=== PATIENT | male | born 1960 | race Caucasian/White ===

== ENCOUNTER 2022-07-01 01:55 | Emergency (ER) | payer SELFPAY ==
[~2022-07-01] VITALS: Ht 172.7 cm; Wt 99.8 kg
[2022-07-01 02:10] VITALS: BP 168/94
== END 2022-07-01 03:21 | disposition left against medical advice (07) ==
LOC: ER 01:55
DX: M54.89 Other dorsalgia (principal); Z53.21 Procedure and treatment not carried out due to patient leaving prior to being seen by health care provider
CPT/HCPCS: 93005

== ENCOUNTER 2024-03-03 17:09 | Emergency (ER) | payer SELFPAY ==
[~2024-03-03] VITALS: Ht 172.7 cm; Wt 109.5 kg
[2024-03-03 17:20] VITALS: BP 161/96
--- NOTE | 2024-03-03 17:47 | ECG ---
[facility] Test Date: 2024-03-03 Test Time: 17:42:57 Pat Name: TIMMY VERGARA Department: ER Room: Gender: M [employer]: GP : 1960 Requested By: EMERGENCY EMERGENCY Order Number: [id number] Reading MD: Hector Pham Measurements Intervals [place] Rate: 75 P: 42 [place]: 197 QRS: 45 QRSD: 95 T: 48 QT: 376 QTc: 420 Interpretive Statements Sinus rhythm Electronically Signed On 03-04-2024 8:54:05 PST by Hector Pham Please click the below link to view image of tracing.
--- NOTE | 2024-03-03 19:04 | DVH ---
CHEST RADIOGRAPH Indication: sob Technique: Single frontal view of the chest was obtained Comparison: None FINDINGS: Lines and Tubes: None Lungs: No focal consolidation. Pleura: No effusion. No pneumothorax. Cardiomediastinal contours: Unremarkable Bones: No acute osseous abnormality. IMPRESSION: 1. No acute cardiopulmonary disease.
--- NOTE | 2024-03-03 19:40 | ED.PDOC ---
History of Present Illness HPI Comments 63 y/o M, with a obesity, bronchitis, and PNA, presents with c/o shortness of breath and nonproductive cough for the past 7x days, today. Patient endorses on symptoms being constant since initial onset and recovering from a bronchitis infection a month ago. He denies any recent sick contact, travel, or other relevant or pertinent Hx. He denies having any chest pain, nausea, vomiting, fever, chills, or other associated symptoms or modifiers at this time. Chief Complaint: Shortness of Breath Time Seen by MD: 18:45 Primary Care Provider: EZRA Reviewed Notes: Nurses Notes, Medications, Allergies Allergies: Coded Allergies: NO KNOWN ALLERGIES (Unverified , 07/01/22) Information Source: Patient Mode of Arrival: Wheelchair Severity: Moderate Timing: Days Duration: Since onset Prehospital treatment: None Past Medical History Past Medical History (Other): obesity, bronchitis, and PNA Surgical History: Denies all surgeries Family History Family History: Unknown Social History Smoker: Non-Smoker Alcohol: Denies ETOH Use Drugs: Denies Drug Use Lives In: Home Respiratory: reports: cough, shortness of breath All Other Systems: Reviewed and Negative (negative unless otherwise stated above or in HPI) Physical Exam General Appearance: No Apparent Distress, Obese HEENT: Normal ENT Inspection, Pharynx Normal, TMs Normal Neck: Full Range of Motion, Non-Tender, Normal, Normal Inspection Respiratory: Chest Non-Tender, Lungs Clear, No Accessory Muscle Use, No Respiratory Distress, Normal Breath Sounds Cardiovascular: No Edema, No JVD, No Murmur, No Gallop, Normal Peripheral Pulses, Regular Rate/Rhythm Breast Exam: Deferred Gastrointestinal: No Organomegaly, Non Tender, No Pulsatile Mass, Normal Bowel Sounds, Soft Genitalia: Deferred Pelvic: Deferred Rectal: Deferred Extremities: No calf tenderness, Normal capillary refill, Normal inspection, Normal range of motion, Non-tender, No pedal edema Musculoskeletal : Apperance: Normal Neurologic: Alert, fire protection equipment technician II-XII nml as Tested, No Motor Deficits, Normal Affect, Normal Mood, No Sensory Deficits Cerebellar Function: Normal Reflexes: Normal Skin: Dry, Normal Color, Warm Lymphatic: No Adenopathy Was a procedure done? Was a procedure done?: No Differential Dx Considerations may include: PE, PNA, DE, URI, viral syndrome X-Ray, Labs, Meds, VS Vital Signs Date Time Temp Pulse Resp B/P (MAP) Pulse Ox O2 Delivery O2 Flow Rate FiO2 03/03/24 20:46 67 18 97 03/03/24 17:42 75 03/03/24 17:20 97.8 78 20 161/96 (117) 94 Lab Test 03/03/24 18:57 Range/Units Influenza Type A Antigen Negative Negative Influenza Type B Antigen Negative Negative SARS-CoV-2 Antigen (Rapid) Negative NEGATIVE Current Medications Medications (Trade) Dose Ordered Sig/Malcom Route Start Time Stop Time Status Last Admin Albuterol (Ventolin Medneb) 2.5 mg ONCE ONCE NEB 03/03/24 20:00 03/03/24 20:01 DC 03/03/24 20:27 Ipratropium [place] (Atrovent Medneb) 0.5 mg ONCE ONCE NEB 03/03/24 20:00 03/03/24 20:01 DC 03/03/24 20:28 Methylprednisolone Sodium Succinate (Solu Medrol) 125 mg ONCE ONCE IM 03/03/24 20:00 03/03/24 20:01 DC 03/03/24 20:42 [place] [id number] Ph: [phone] DIAGNOSTIC IMAGING Diagnostic Imaging Report : [id number] Signed PATIENT: TIMMY VERGARA ACCT: [id number] UNIT: [id number] : 1960 LOC: ER ROOM / BED: / AGE / SEX: 63 / M ADM STATUS: REG ER SERVICE 1844 ORDERING PHYSICIAN: JORDON BEAUCHAMP PROCEDURE(s): CXR1 - CHEST XRAY 1 VIEW REASON: sob ORDER NUMBER(s): [id number], ACCESSION NUMBER(s): [id number] CHEST RADIOGRAPH Indication: sob Technique: Single frontal view of the chest was obtained Comparison: None FINDINGS: Lines and Tubes: None Lungs: No focal consolidation. Pleura: No effusion. No pneumothorax. Cardiomediastinal contours: Unremarkable Bones: No acute osseous abnormality. IMPRESSION: 1. No acute cardiopulmonary disease. ATED BY: ROWDY BAEZ Jr., DO DICTATED DATE/TIME: 03/03/241901 SIGNED BY: ROWDY BAEZ Jr., DO SIGNED DATE/TIME: 03/03/241901 CC: X-Ray, Labs, Meds, VS Comment Imaging: X-rays and CT scans were reviewed and interpreted by this provider, imaging shows no fractures and no pathological disease. Pending radiology review. Laboratory: Labs reviewed and interpreted by this provider. No significant abnormalities noted. Patient has prior medical visits reviewed. Med reconciliation performed Vital signs reviewed Time of 1ST Reevaluation: 19:15 Reevaluation 1ST: Unchanged Patient Education/Counseling: Diagnosis, Treatment, Need For Follow Up (Follow up with the PCP in the next 3-5 days. Follow up in the emergency department if symptoms worsen.) Family Education/Counseling: No Family Present Departure 1 Departure Time of Disposition: 21:08 Impression: Primary Impression: Bronchitis Disposition: 01 HOME / SELF CARE / HOMELESS Condition: Fair e-Prescriptions Promethazine-Dm (Promethazine Dm 6.25-15 mg/5Ml) 1 Jeanette Jeanette 5 ML PO TID PRN, #1 ML Prov: JORDON BEAUCHAMP 03/03/24 Albuterol Sulfate (Albuterol Sulfate Hfa) 108 Mcg/Act Aer 108 MCG IN TID PRN, #1 AER Prov: JORDON BEAUCHAMP 03/03/24 Methylprednisolone (Medrol Dosepak) 4 Mg Anibal 4 MG PO UD, #21 TAB UAD Prov: JORDON BEAUCHAMP 03/03/24 Discharged With: Self Critical Care Note Critical Care Time?: No Stability Stability form required: No Heart Score Heart Score: Heart Score Response (Comments) Value History N/A 0 EKG N/A 0 Age N/A 0 Risk Factors N/A 0 Troponin N/A 0 Total 0 I personally scribed for JORDON BEAUCHAMP ([email or web address]) on 03/03/24 at 19:40. Electronically submitted by Jose Guevara ([email or web address]). JORDON BEAUCHAMP Mar 03, 2024 19:40
[2024-03-03 20:10] LABS: COVID19 ANTIGEN SOFIA FIA NEGATIVE (NEGATIVE); Rapid Influenza A Negative (Negative); Rapid Influenza B Negative (Negative)
[2024-03-03] MEDS: ALBUTEROL SULF 2.5 MG/0.5ML(0.5%) NEB SOLN NEB ONE (20:27)
[2024-03-03] MEDS: IPRATROPIUM BROM 0.5 MG/2.5ML INH SOL NEB ONE (20:28)
[2024-03-03] MEDS: methylPREDNISolone SOD SUCC 125 MG/2 ML VL IM ONE (20:42)
[2024-03-03 20:46] VITALS: PULSE 67; RESP 18; O2SAT 97
[2024-03-03] MEDS ORDERED: METH4PAK PO (21:09)
[2024-03-03] MEDS ORDERED: PROM1SOL4 PO (21:09)
[2024-03-03] MEDS ORDERED: ALBU108A5 IN (21:09)
== END 2024-03-03 21:23 | disposition home or self-care (01) ==
LOC: ER 17:09
DX: J40 Bronchitis, not specified as acute or chronic (principal); Z20.822 Contact with and (suspected) exposure to COVID-19
CPT/HCPCS: 36415; 71045; 87426; 87804; 93005; 94640; 96372; 99285; J2919